=== PATIENT | female | born 1990 | race Caucasian/White ===

== ENCOUNTER 2019-02-16 19:20 | Emergency (ER) | payer MEDICAID ==
--- NOTE | 2019-02-16 19:44 | NUR ---
ERP AT BS FOR EVAL AND TO DISCUSS POC AT THIS TIME.
--- NOTE | 2019-02-16 19:56 | NUR ---
PT. AMBULATED DOWN TO X-RAY AND BACK TO ROOM. LABS BEING DRAWN NOW.
--- NOTE | 2019-02-16 20:08 | NUR ---
PT. C/O SOB WITH EXERCISE X 1 WEEK. STATES HAD THE FLU A MONTH AGO. C/O LEFT DULL INTERMITTENT CP WITH EXERCISE. PT. ALSO REPORTS THE SOB/PAIN SOMETIMES WAKES HER FROM SLEEP WHEN LYING FLAT. DENIES ANY SIGNIFICANT MEDICAL HX, RECENT LONG TRAVEL, OR INJURY. DENIES SMOKING/DRUGS. RESP EVEN, NON-LABORED, RA SAT 97%. ALL MONITORS PLACED. EKG HAD BEEN DONE IN TRIAGE. CALL LIGHT IN REACH. ALL SAFETY MEASURES OBSERVED.
[2019-02-16 20:10] LABS: BASOPHILS # (AUTO) 0.03 x10^3/uL (0-0.1); BASOPHILS % (AUTO) 1 % (0-1); EOSINOPHILS # (AUTO) 0.07 x10^3/uL (0-0.4); EOSINOPHILS % (AUTO) 1 % (1-7); LYMPHOCYTES # (AUTO) 2.21 x10^3/uL (1-3.4); LYMPHOCYTES % (AUTO) 37 % (22-44); MD NO; MEAN CORPUSCULAR HEMOGLOBIN 32.7 pg (27.0-34.8); MEAN CORPUSCULAR HGB CONC 33.4 g/dL (32.4-35.8); MEAN CORPUSCULAR VOLUME 97.8 fL (80-100); MEAN PLATELET VOLUME 8.5 fL (7.4-10.4); MONOCYTES # (AUTO) 0.32 x10^3/uL (0.2-0.8); MONOCYTES % (AUTO) 5 % (2-9); NEUTROPHILS # (AUTO) 3.31 x10^3/uL (1.8-6.8); NEUTROPHILS % (AUTO) 56 % (42-75); PLATELET COUNT 291 x10^3/uL (130-400); RED BLOOD COUNT 4.08 x10^6/uL (3.82-5.3)
[2019-02-16 20:19] LABS: ALBUMIN 3.8 g/dL (3.4-5.0); ANION GAP 6 mmol/L (5-15); CALCIUM 8.8 mg/dL (8.5-10.1); CHLORIDE 110 mmol/L (98-107)
[2019-02-16 20:25] LABS: TROPONIN I < 0.015 ng/mL (0.000-0.045)
--- NOTE | 2019-02-16 20:30 | NUR ---
CALLED LAB ABOUT D-DIMER; THEY REPORT IT IS BEING WORKED ON RIGHT NOW. ALL OTHER LABS/IMAGING BACK.
--- NOTE | 2019-02-16 21:05 | NUR ---
PT. RESTING ON GURNEY WITH NADN. CHART UP FOR RECHECK BY ERP. PT. DENIES NEEDS.
[2019-02-16 21:07] VITALS: BP 103/68
--- NOTE | 2019-02-16 21:10 | NUR ---
DR. RUSHING AT TO DISCUSS PLAN FOR D/C WITH PT.
== END 2019-02-16 21:27 | disposition home or self-care (01) ==
LOC: ED 21:15
DX: R07.89 Other chest pain (principal); R06.02 Shortness of breath
CPT/HCPCS: 36415; 71046; 80048; 82040; 84484; 84703; 85025; 85379; 93005; 99284